=== PATIENT | female | born 1995 | race Caucasian/White ===

== ENCOUNTER 2023-03-01 16:56 | Observation (INO) | payer OTHER, SELFPAY ==
--- NOTE | ~2023-03-01 | XR_ITS ---
EXAMINATION: XR chest 1V portable Exam Date/Time: 03/01/2023 18:15 CDT HISTORY: fever, BODY ACHES, DIABETIC Comparison: None. RESULT: Lines, tubes, and devices: None. Lungs and pleura: Reticular opacities with cuffing. No focal consolidation. Cardiomediastinal silhouette: Stable. Other: No acute osseous or upper abdominal finding. IMPRESSION: Pulmonary opacities may represent interstitial edema versus respiratory bronchiolitis. Reviewed, dictated and finalized at location K. IMPRESSION: Pulmonary opacities may represent interstitial edema versus respiratory bronchi olitis.
[2023-03-01 17:10] LABS: Glucose Point of Care 168 mg/dl (65-105)
[2023-03-01 17:16] VITALS: BP 137/70; PULSE 129; RESP 18; TEMP 39.5; O2SAT 98
--- NOTE | 2023-03-01 17:28 | ECG_ITS ---
Measurements Intervals Oscar Rate: 110 P: 39 TX: 144 QRS: 67 QRSD: 93 T: 46 QT: 309 QTc: 418 Interpretive Statements SINUS TACHYCARDIA BORDERLINE ST-T WAVE ABNORMALITY- ANTEROLATERAL LEADS ABNORMAL ECG NO PREVIOUS ECG AVAILABLE FOR COMPARISON Electronically Signed On 03-02-2023 7:51:57 CDT by Mitul Garcia D.O.
--- NOTE | 2023-03-01 17:34 | ED.FEVER ---
HPI - Fever General Chief Complaint: Fever Stated Complaint: fever, chills, diabetic Time Seen by Provider: 03/01/23 17:22 History of Present Illness HPI Narrative: This is a 28-year-old female with history of type 1 diabetes, who presents to the emergency department complaining of fevers and palpitations for the past day. She states yesterday, she noted some irritation on the right flank where her insulin pump was located. She also noticed blood sugars obtained by her monitor in the 400s. Today, she developed swelling and redness at the previous insulin pump site. This was accompanied by fatigue, palpitations, nausea and multiple episodes of non-bloody vomiting. Related Data Home Medications Medication Instructions Recorded Confirmed blood-glucose sensor (Dexcom G6 03/01/23 03/01/23 Sensor device) blood-glucose transmitter (Dexcom 03/01/23 03/01/23 G6 Transmitter device) insulin lispro 100 unit/mL See Protocol subcut QID 03/01/23 03/01/23 subcutaneous pen (Humalog KwikPen (U-100) Insulin) insulin pump cart,automated,BT 03/01/23 03/01/23 (Omnipod 5 G6 Pods (Gen 5) subcutaneous cartridge) insulin pump cart,cont inf,BT 03/01/23 03/01/23 (Omnipod Dash Pods (Gen 4) subcutaneous cartridge) insulin pump cart,cont inf,RF 03/01/23 03/01/23 (Omnipod Classic Pods (Gen 3) subcutaneous cartridge) insulin pump cartridge,automated 03/01/23 03/01/23 dose,BT with controller subcutaneous (Omnipod 5 G6 Intro Kit (Gen 5) subcutaneous cartridge with controller) pen needle, diabetic 29 gauge x 03/01/23 03/01/23 1/2 (BD Ultra-Fine Original Pen Needle) Allergies Allergy/AdvReac Type Severity Reaction Status Date / Time No Known Allergies Allergy Unknown Verified 11/24/18 19:15 Review of Systems Review of Systems: CONSTITUTIONAL: Fever, chills, and sweats. CARDIOVASCULAR: Palpitations, Denies chest pain, or edema. RESPIRATORY: Denies cough or dyspnea. GASTROINTESTINAL: Nausea and vomiting, Denies abdominal pain, or diarrhea. GENITOURINARY: LMP 1 week ago Denies dysuria or hematuria. SKIN: Erythema and swelling of the right hip Denies other rash or itching. MUSCULOSKELETAL: Myalgias Denies back pain, joint pain NEUROLOGIC: Generalized weakness Denies headache, numbness, dizziness PSYCHIATRIC: Denies anxiety or depression. Exam Narrative: GENERAL: Well-developed, well-nourished, appears uncomfortable. HEAD: Normocephalic, atraumatic. EYES: PERRLA and EOMI. ENT: Nares clear, no rhinorrhea or epistaxis. Mucous membranes moist. Oropharynx without tonsillar hypertrophy exudate or other lesions. CHEST: Clear to auscultation. No respiratory distress. No wheezes rales or rhonchi HEART: Tachycardic with regular rhythm. No murmur heard. Normal peripheral pulses. ABDOMEN: Soft, nontender, nondistended, normal active bowel sounds. EXTREMITIES: Normal range of motion. No edema. SKIN: An approximate 25p30rt area of erythema, swelling and induration with sharply demarcated border is noted over the right hip consistent with cellulitis. There is no noted fluctuant mass, bleeding or purulent drainage. The skin is otherwise warm, dry, without rash. NEURO: No focal deficits. Alert and oriented x3. PSYCH: Normal mood and affect. Course DINING ROOM MANAGER/PA Physician Supervision 17:35 - I have a strong suspicion for sepsis and possible DKA. Will order sepsis protocol and treat for diabetic cellulitis with cefepime, flagyl and vancomycin. 17:50 - VBG demonstrates mild alkalosis with pH of 7.43. Bicarb of 20.7 and PCO2 of 31.9. 18:38 - White blood cell count elevated to 17. Chemistries pending. 18:45 - On reevaluation, the patient's tachycardia and fever have resolved. Her BP remains in the 130s. Given the patient's cellulitis, initial presentation concerning for sepsis, and diabetes, I discussed patient with hospitalist LALITO Espana for admission, who accepts. I discussed the findings with the patient who vo
[2023-03-01] MEDS: ONDANSETRON INJ 4 MG/2 ML VIAL IV PUSH (17:45)
[2023-03-01 17:46] LABS: Basophils Absolute Auto 0.1 K/mm3 (0.0-0.1); Basophils Percent Auto 0.3 % (0.2-1.2); Hematocrit 38.6 % (37.0-47.0); Immature Granulocyte Absolute 0.08 K/mm3 (0.00-0.031); Immature Granulocyte Percent A 0.5 % (0-0.5); Lymphocytes Absolute Auto 1.28 K/mm3 (0.9-3.2); Lymphocytes Percent Auto 7.4 % (18.3-44.2); Mean Corpuscular HGB Conc 33.7 g/dl (32-36); Mean Corpuscular Hemoglobin 31.5 pg (26-34); Mean Corpuscular Volume 93.5 fl (80-100); Mean Platelet Volume 11.2 fl (7.4-10.4); Monocytes Absolute Auto 0.6 K/mm3 (0.1-0.6); Monocytes Percent Auto 3.5 % (2.6-8.5); Neutrophils Absolute Auto 15.3 K/mm3 (1.3-6.7); Neutrophils Percent Auto 88.3 % (45.5-73.1); Platelet Count Result 169 k/mm3 (150-375); Red Blood Count 4.13 M/mm3 (4.2-5.4); Red Cell Distribution Width 12.1 % (11.5-14.5); White Blood Count 17.3 K/mm3 (4.5-10.0)
[2023-03-01 17:55] LABS: Fractional Inspired Oxygen 21 %; HCO3 VBG 20.7 mEq/l (24.0-30.0); PCO2 VBG 31.9 mmHg (42.0-48.0); PO2 VBG 32.9 mmHg (35.0-45.0)
[2023-03-01 18:01] LABS: Lactic Acid Reflex 1.1 mmol/L (0.7-2.0)
[2023-03-01] MEDS: metroNIDAZOLE 500 MG/ISO 100ML 500 MG/100 ML BAG 100 MG IVPB (18:04)
[2023-03-01] MEDS: CEFEPIME 2 GM/NS 50 ML 2 GM/50 ML BAG IVPB (18:04)
[2023-03-01 18:18] VITALS: TEMP 37.6
[2023-03-01 18:24] LABS: INR 1.2; Prothrombin Time 15.9 Seconds (11.1-14.7)
[2023-03-01 18:25] LABS: Partial Thromboplastin Time 30.5 SECONDS (22.3-36.8)
[2023-03-01 19:00] LABS: Glucose Point of Care 126 mg/dl (65-105)
[2023-03-01 19:06] LABS: Alanine Aminotransferase 16 U/L (6-35); Albumin Level 3.7 g/dL (3.5-5.1); Alkaline Phosphatase 42 U/L (38-126); Anion Gap 8 mmol/L (8-16); Aspartate Amino Transferase 16 U/L (14-36); Bilirubin,Total 0.6 mg/dL (0.2-1.3); Blood Urea Nitrogen 14 mg/dL (7-17); Calcium 8.5 mg/dL (8.4-10.2); Carbon Dioxide 22 mmol/L (22-30); Chloride 102 mmol/L (98-107); Estimated CRCL calculation 118 ml/min; Estimated Glomerular Filt Rate > 60; Glucose 136 mg/dL (65-110); Potassium 3.3 mmol/L (3.4-5.0); Sodium 132 mmol/L (137-145)
--- NOTE | 2023-03-01 19:17 | PC.NURSE ---
Per EDGAR Perez, patient okay to use own insulin pump.
[2023-03-01 19:39] LABS: CRP 18.6 mg/dL (<1.0)
[2023-03-01 19:43] VITALS: BP 142/86; PULSE 99; RESP 22; O2SAT 98
[2023-03-01 19:53] LABS: Appearance Urine Cloudy (Clear); Bacteria Urine 4+ /hpf; Bilirubin Urine Negative (Negative); Blood Urine Negative (Negative); Color Urine Dark Yellow (Yellow); Glucose Urine UA 2+ mg/dL (Negative); Ketones Urine 4+ mg/dL (Negative); Leukocyte Esterase Ur 1+ LEU/UL (Negative); Mucus Urine Present /lpf; Nitrate Urine Negative (Negative); Protein Urine 2+ mg/dL (Negative); RBC Urine 0-2 /hpf (0-2); Specific Grav Ur 1.035 (1.001-1.035); Squamous Epithelial Cell Urine Many /hpf (Few); Urobilinogen Urine 0.2 mg/dL (<2.0); pH Urine 6.5 (5.0-9.0)
[2023-03-01 19:59] LABS: Add Urine Microscopic? YES
[2023-03-01] MEDS: SODIUM CHLORIDE 0.9% IV 1,000 ML 125 ML IV CONT (20:59)
[2023-03-01 21:01] VITALS: PULSE 97; RESP 16; O2SAT 100
--- NOTE | 2023-03-01 21:01 | PC.NURSE ---
This patient, Kaleigh Chavez, was admitted to [facility] Surg Room 321-01. Patient/family oriented to hospital policies and general routines including ID bracelet, bed and alarms, visiting hours, pain management, procedures, bathroom and other care routines, personal items, smoking policy, room service/diet, and visiting hours. Information on how to activate the Rapid Response Team has been discussed. Patient/Family are encouraged to report perceived risks to care and to ask questions if they do not understand what they are told or what they should do.
[2023-03-01 21:03] VITALS: BP 104/47; PULSE 101; RESP 14; TEMP 37.4; O2SAT 99
[2023-03-01 21:04] VITALS: BMI 30.8
[2023-03-02 04:11] LABS: Glucose Point of Care 211 mg/dl (65-105)
[2023-03-02 04:32] VITALS: BP 114/52; PULSE 97; RESP 16; TEMP 36.6; O2SAT 100
--- NOTE | 2023-03-02 06:15 | PC.NURSE ---
basal rates 12a-6a 1.55, 6a-10pm 1.25, 10pm-12am 1.7 for insulin pump
[2023-03-02] MEDS: SODIUM CHLORIDE 0.9% IV 1,000 ML 125 ML IV CONT ×2 (06:17→22:21)
[2023-03-02 07:02] LABS: Basophils Percent Auto 0.2 % (0.2-1.2); Eosinophils Percent Auto 0.1 % (0-4.4); Hematocrit 34.4 % (37.0-47.0); Hemoglobin 11.4 g/dL (12.0-15.0); Immature Granulocyte Absolute 0.07 K/mm3 (0.00-0.031); Immature Granulocyte Percent A 0.6 % (0-0.5); Immature Platelet Fraction Pct 6.9 % (0.9-11.2); Lymphocytes Absolute Auto 1.23 K/mm3 (0.9-3.2); Lymphocytes Percent Auto 10.5 % (18.3-44.2); Mean Corpuscular HGB Conc 33.1 g/dl (32-36); Mean Corpuscular Hemoglobin 30.9 pg (26-34); Mean Corpuscular Volume 93.2 fl (80-100); Mean Platelet Volume 11.4 fl (7.4-10.4); Monocytes Absolute Auto 0.4 K/mm3 (0.1-0.6); Monocytes Percent Auto 3.3 % (2.6-8.5); Neutrophils Percent Auto 85.3 % (45.5-73.1); Platelet Count Result 130 k/mm3 (150-375); Red Blood Count 3.69 M/mm3 (4.2-5.4); Red Cell Distribution Width 11.9 % (11.5-14.5); White Blood Count 11.8 K/mm3 (4.5-10.0)
[2023-03-02 07:16] LABS: Anion Gap 4 mmol/L (8-16); Blood Urea Nitrogen 10 mg/dL (7-17); Calcium 8.3 mg/dL (8.4-10.2); Carbon Dioxide 25 mmol/L (22-30); Chloride 106 mmol/L (98-107); Estimated CRCL calculation 138 ml/min; Estimated Glomerular Filt Rate > 60; Glucose 131 mg/dL (65-110); Potassium 3.4 mmol/L (3.4-5.0); Sodium 135 mmol/L (137-145)
[2023-03-02 08:05] LABS: Glucose Point of Care 121 mg/dl (65-105)
[2023-03-02] MEDS: ceFAZolin 2 GM/D5W 50 ML 2 GM/50 ML BAG IVPB ×3 (09:28→23:36)
--- NOTE | 2023-03-02 11:02 | PM.IMPN ---
Progress Note: A&P Assessment and Plan (1) Sepsis: Qualifiers: Sepsis acute organ dysfunction status: without acute organ dysfunction Sepsis type: sepsis due to unspecified organism Qualified Code(s): A41.9 - Sepsis, unspecified organism Code(s): A41.9 - Sepsis, unspecified organism Status: Acute Assessment and Plan: Septic on presentation with fever (T-max 103.2?), tachycardia, and leukocytosis Source of infection is cellulitis as below Fever has improved, patient remaining afebrile today Continue IV antibiotics Leukocytosis improving (2) Cellulitis of trunk: Code(s): L03.319 - Cellulitis of trunk, unspecified Status: Acute Assessment and Plan: Patient has cellulitis overlying the right hip/flank at site of insulin pump Insulin pump site has been changed Continue with Ancef and vancomycin Blood cultures pending MRSA nares culture pending Trend CRP Monitor with serial exams Supportive care to include analgesics as needed, antiemetics, and antipyretics (3) Type 1 diabetes: Code(s): E10.9 - Type 1 diabetes mellitus without complications Status: Acute Assessment and Plan: Patient reports last A1c was 7.1. Patient reports poor blood sugar control prior to presentation but seems improved at this time Last blood sugar 125 Continue with patient managed insulin pump Monitor glucose trends and adjust regimen as needed Check updated A1c Subjective Date/time seen: 03/02/23 11:02 Interval history: Date of service: 03/02/23 Aisha Chaevz is a 28 year old female with a history of type 1 diabetes mellitus who is seen in follow-up for cellulitis of the right flank. She endorses sharp pain in the right flank that is worse with movement which she rates as 7/10. She endorses nausea but no episodes of emesis. She denies fevers, chills, or sweats. She has moved her insulin pump and has no issues at the current insulin pump site. She denies urinary symptoms. Reports last bowel movement was 2 days ago. Denies shortness of breath, cough, or chest pain. Review of Systems Review of Systems: All systems reviewed & are unremarkable except as noted in HPI and below Exam Narrative: General: Well-nourished, well-appearing 28-year-old female, sitting up in bed, comfortable, NARD Neuro: awake, alert and oriented x4, speech clear, no focal neuro deficits noted HEENMT: normocephalic, atraumatic, EOMI, sclerae anicteric, moist oral mucosa Respiratory: clear to auscultation bilaterally, nonlabored breathing Cardio: regular rate, regular rhythm with S1-S2 Abdomen: nondistended, normoactive bowel sounds, soft Extremities: no edema, erythema, or tenderness to palpation, DP pulses 2+ bilaterally Skin: round patch of erythema on right flank/hip that is warm and tender to palpation, no rashes or lesions, warm and dry Psych: appropriate mood and affect, judgment and insight intact Objective Data Vital Signs Vital Signs: Vital Signs - 24 hr 03/01/23 17:16 03/01/23 18:18 03/01/23 19:43 Temperature 103.1 F H 99.7 F H Pulse Rate 129 H 99 Respiratory Rate 18 22 H Blood Pressure 137/70 142/86 H Pulse Oximetry 98 98 Oxygen Delivery Room Air 03/01/23 21:03 03/02/23 04:32 03/01/23 21:01 Temperature 99.4 F 97.9 F Pulse Rate 101 H 97 97 Respiratory Rate 14 16 16 Blood Pressure 104/47 L 114/52 L Pulse Oximetry 99 100 100 Oxygen Delivery Room Air Intake/Output Intake/Output: Intake & Output 02/27/23 02/28/23 03/01/23 03/02/23 23:59 23:59 23:59 23:59 Intake Total 3350 1300 Balance 3350 1300 Meds/Results Medications: Active Medications Generic Name Dose Route Start Last Admin Trade Name Freq PRN Reason Stop Dose Admin Acetaminophen 1,000 mg 03/02/23 06:17 Acetaminophen 500 Mg Tablet PO Q6H PRN Mild Pain (1-3) or Fever Dextrose 12.5 gm 03/01/23 18:37 Dextrose 50% 25 Gm/50 Ml Syringe
[2023-03-02] MEDS: ACETAMINOPHEN 325 MG TABLET 650 MG PO ×2 (11:07→21:51)
[2023-03-02 11:52] LABS: Glucose Point of Care 125 mg/dl (65-105)
[2023-03-02 13:19] VITALS: BP 107/46; PULSE 88; RESP 18; TEMP 36.9; O2SAT 99
--- NOTE | 2023-03-02 13:46 | PCCCNOTE ---
On 03/02/23, the student, [Vale Alonzo], provided care and completed [facility] documentation on this patient. I have reviewed the student's documentation and agree with the findings.
[2023-03-02 14:05] LABS: Hemoglobin A1C 6.4 % (<5.7)
--- NOTE | 2023-03-02 15:43 | PM.IMHP ---
H&P: HPI History of Present Illness Date/Time: 03/01/23 20:00 Chief Complaint: Fever. Narrative: This is a pleasant 28-year-old female with type 1 diabetes mellitus who presented to the emergency department for evaluation of fever. Yesterday she had some discomfort on the right flank where she had her insulin pump so she moved the site and later that day she noticed that the site was red and irritated. Last evening she started to develop chills and a fever which was 103.5? F on arrival to the ED. She has also had nausea and vomiting and she reports having difficulties getting her glucose under 400 yesterday but that has since improved. In the ED she was found to have a large area of cellulitis on the right flank and she is being admitted in this setting for IV antibiotics and close monitoring.?She has no known history of multidrug resistant organisms. Review of Systems Review of Systems: Twelve systems were reviewed and are negative except for as per HPI. [facility] Past Medical History Medical History (Updated 03/03/23 @ 01:08 by Ana Madden PA-C) Type 1 diabetes Surgical History Surgical History (Updated 03/03/23 @ 01:08 by Ana Madden PA-C) History of excision of pilonidal cyst Family History Family History (Updated 03/03/23 @ 01:09 by Ana Madden PA-C) Other Family history non-contributory Social History Social History (Updated 03/03/23 @ 01:09 by Ana Madden PA-C) Social History: Surrogate medical decision maker: Larry Chavez, father. Code status: Full code. Smoking status: Never smoker Alcohol intake: current Drinks per week: 2 Substance use: never Lack of Transportation: No Lack of Food: Never True Current Housing: Decline to Answer Concerned About Future Housing: No Difficulty Paying Gas/Electric Bills: No Difficulty Paying for Meds: No Currently Unemployed: No Education: Bachelor's Degree Difficulty w/ Childcare or Family Care: No Spiritual care concerns: No Meds Home Medications and Allergies Home Medications Medication Instructions Recorded Confirmed Type blood-glucose sensor (Dexcom G6 03/01/23 03/01/23 History Sensor device) blood-glucose transmitter (Dexcom 03/01/23 03/01/23 History G6 Transmitter device) insulin lispro 100 unit/mL See Protocol subcut QID 03/01/23 03/01/23 History subcutaneous pen (Humalog KwikPen (U-100) Insulin) insulin pump cart,automated,BT 03/01/23 03/01/23 History (Omnipod 5 G6 Pods (Gen 5) subcutaneous cartridge) insulin pump cart,cont inf,BT 03/01/23 03/01/23 History (Omnipod Dash Pods (Gen 4) subcutaneous cartridge) insulin pump cart,cont inf,RF 03/01/23 03/01/23 History (Omnipod Classic Pods (Gen 3) subcutaneous cartridge) insulin pump cartridge,automated 03/01/23 03/01/23 History dose,BT with controller subcutaneous (Omnipod 5 G6 Intro Kit (Gen 5) subcutaneous cartridge with controller) pen needle, diabetic 29 gauge x 03/01/23 03/01/23 History 1/2 (BD Ultra-Fine Original Pen Needle) Allergies Allergy/AdvReac Type Severity Reaction Status Date / Time No Known Allergies Allergy Unknown Verified 11/24/18 19:15 Vital Signs Vital Signs - 24 hr 03/01/23 17:16 03/01/23 18:18 03/01/23 19:43 Temperature 103.1 F H 99.7 F H Pulse Rate 129 H 99 Respiratory Rate 18 22 H Blood Pressure 137/70 142/86 H Pulse Oximetry 98 98 Oxygen Delivery Room Air 03/01/23 21:03 03/02/23 04:32 03/01/23 21:01 Temperature 99.4 F 97.9 F Pulse Rate 101 H 97 97 Respiratory Rate 14 16 16 Blood Pressure 104/47 L 114/52 L Pulse Oximetry 99 100 100 Oxygen Delivery Room Air 03/02/23 08:00 03/02/23 13:19 Temperature 98.4 F Pulse Rate 88 Respiratory Rate 18 Blood Pressure 107/46 L Pulse Oximetry 99 Oxygen Delivery Room Air Exam Narrative: General: Nontoxic-appearing female sitting up in bed.?
[2023-03-02 16:54] LABS: Glucose Point of Care 153 mg/dl (65-105)
[2023-03-02 20:00] VITALS: O2SAT 99
[2023-03-02 20:35] VITALS: BP 116/67; PULSE 100; RESP 18; TEMP 36.9; O2SAT 100
[2023-03-02 20:51] LABS: Glucose Point of Care 124 mg/dl (65-105)
[2023-03-03] MEDS: ceFAZolin 2 GM/D5W 50 ML 2 GM/50 ML BAG IVPB ×3 (05:19→22:43)
[2023-03-03 05:28] VITALS: BP 114/62; PULSE 77; RESP 14; TEMP 36; O2SAT 100
[2023-03-03 07:46] LABS: Hematocrit 30.5 % (37.0-47.0); Hemoglobin 10.3 g/dL (12.0-15.0); Immature Platelet Fraction Pct 8.8 % (0.9-11.2); Mean Corpuscular HGB Conc 33.8 g/dl (32-36); Mean Corpuscular Hemoglobin 31.9 pg (26-34); Mean Corpuscular Volume 94.4 fl (80-100); Mean Platelet Volume 11.3 fl (7.4-10.4); Platelet Count Result 115 k/mm3 (150-375); Red Blood Count 3.23 M/mm3 (4.2-5.4); Red Cell Distribution Width 12.2 % (11.5-14.5); White Blood Count 6.7 K/mm3 (4.5-10.0)
[2023-03-03 07:58] LABS: Anion Gap 5 mmol/L (8-16); Blood Urea Nitrogen 6 mg/dL (7-17); Calcium 7.6 mg/dL (8.4-10.2); Carbon Dioxide 24 mmol/L (22-30); Chloride 108 mmol/L (98-107); Estimated CRCL calculation 163 ml/min; Estimated Glomerular Filt Rate > 60; Glucose 147 mg/dL (65-110); Potassium 3.3 mmol/L (3.4-5.0); Sodium 137 mmol/L (137-145)
[2023-03-03 08:05] LABS: CRP 17.8 mg/dL (<1.0)
[2023-03-03 08:08] LABS: Glucose Point of Care 149 mg/dl (65-105)
[2023-03-03] MEDS: SODIUM CHLORIDE 0.9% IV 1,000 ML 125 ML IV CONT (08:08)
[2023-03-03 08:15] LABS: Vancomycin Trough 6.1 ug/mL (10.0-20.0)
[2023-03-03] MEDS: VANCOMYCIN HCL 2,000 MG in SODIUM CHLORIDE 0.9% IV 500 ML 250 MG IVPB ×2 (11:37→17:58)
[2023-03-03] MEDS: POTASSIUM CHLORIDE 20 MEQ TABLET PO (11:37)
[2023-03-03 11:46] LABS: Glucose Point of Care 152 mg/dl (65-105)
--- NOTE | 2023-03-03 13:07 | PM.IMPN ---
Progress Note: A&P Assessment and Plan (1) Sepsis: Qualifiers: Sepsis acute organ dysfunction status: without acute organ dysfunction Sepsis type: sepsis due to unspecified organism Qualified Code(s): A41.9 - Sepsis, unspecified organism Code(s): A41.9 - Sepsis, unspecified organism Status: Acute Assessment and Plan: Septic on presentation with fever (T-max 103.2?), tachycardia, and leukocytosis Source of infection is cellulitis as below Fever resolved, pt afebrile 24 hours Continue IV antibiotics Leukocytosis resolved Blood cultures pending, negative to date (2) Cellulitis of trunk: Code(s): L03.319 - Cellulitis of trunk, unspecified Status: Acute Assessment and Plan: Patient has cellulitis overlying the right hip/flank at site of prior insulin pump insertion Insulin pump site has been changed Continue with IV Ancef and vancomycin Blood cultures pending, negative to date MRSA nares culture pending Trend CRP Monitor with serial exams Supportive care to include analgesics as needed, antiemetics, and antipyretics (3) Type 1 diabetes: Qualifiers: Diabetes mellitus complication detail: with other skin complication Diabetes mellitus complication status: with skin complications Qualified Code(s): E10.628 - Type 1 diabetes mellitus with other skin complications Code(s): E10.9 - Type 1 diabetes mellitus without complications Status: Acute Assessment and Plan: A1c is 6.4. Blood sugars are controlled Continue with patient managed insulin pump Monitor glucose trends and adjust regimen as needed Plan Consider discharge home tomorrow based on culture results if improvement in appearance of cellulitis Subjective Date/time seen: 03/03/23 13:07 Interval history: Date of service: 03/02/23 Aisha Chavez is a 28 year old female with a history of type 1 diabetes mellitus who is seen in follow-up for cellulitis of the right flank. Patient states that she is feeling better today. She has not noted much improvement in her cellulitis. States area his about the same size. Feels that the tenderness has improved. Denies fevers or chills. No nausea or vomiting. She continues to endorse poor appetite. She had trouble sleeping last night. She is eager for discharge home. Discussed with patient and her family member that would not advise discharge today given persistent cellulitis. Discussed need for continued IV antibiotics to ensure appropriate treatment. Review of Systems Review of Systems: All systems reviewed & are unremarkable except as noted in HPI and below Exam Narrative: General:? Well-nourished, well-appearing 28-year-old female, sitting up in bed, comfortable, NARD Neuro: awake, alert and oriented x4, speech clear, no focal neuro deficits noted HEENMT:? normocephalic, atraumatic, EOMI, sclerae anicteric Respiratory: clear to auscultation bilaterally, nonlabored breathing Cardio: regular rate, regular rhythm with S1-S2 Abdomen:? nondistended, normoactive bowel sounds, soft Extremities: no edema, erythema, or tenderness to palpation, DP pulses 2+ bilaterally Skin: Large patch of erythema on right flank/hip? that is warm and tender to palpation, erythema is mildly improved today, no rashes or lesions, warm and dry Psych: appropriate mood and affect, judgment and insight intact Objective Data Vital Signs Vital Signs: Vital Signs - 24 hr 03/02/23 13:19 03/02/23 20:00 03/02/23 20:35 Temperature 98.4 F 98.5 F Pulse Rate 88 100 Respiratory Rate 18 18 Blood Pressure 107/46 L 116/67 Pulse Oximetry 99 99 100 Oxygen Delivery Room Air 03/03/23 05:28 03/03/23 08:20 Temperature 96.8 F L Pulse Rate 77 Respiratory Rate 14 Blood Pressure 114/62 Pulse Oximetry 100 Oxygen Delivery Room Air Intake/Output Intake/Output: Intake & Output 02/28/23 03/01/23 03/02/23 03/03/23 23:59 23:59 23:59 2
[2023-03-03 14:36] VITALS: BP 120/86; PULSE 82; RESP 18; TEMP 36.3; O2SAT 100
[2023-03-03 17:14] LABS: Glucose Point of Care 158 mg/dl (65-105)
[2023-03-03 20:52] VITALS: BP 118/75; PULSE 89; RESP 16; TEMP 36.4; O2SAT 100
[2023-03-03] MEDS: MELATONIN 5 MG TABLET PO (22:39)
[2023-03-03] MEDS: ACETAMINOPHEN 325 MG TABLET 650 MG PO (22:40)
[2023-03-03 23:37] LABS: Glucose Point of Care 117 mg/dl (65-105)
[2023-03-04] MEDS: VANCOMYCIN HCL 2,000 MG in SODIUM CHLORIDE 0.9% IV 500 ML 250 MG IVPB (03:15)
[2023-03-04 05:00] VITALS: BP 119/78; PULSE 80; RESP 20; TEMP 35.9; O2SAT 100
[2023-03-04 07:53] LABS: Glucose Point of Care 136 mg/dl (65-105)
[2023-03-04 08:50] LABS: Hemoglobin 10.8 g/dL (12.0-15.0); Mean Corpuscular HGB Conc 33.8 g/dl (32-36); Mean Corpuscular Hemoglobin 31.2 pg (26-34); Mean Corpuscular Volume 92.5 fl (80-100); Mean Platelet Volume 11.5 fl (7.4-10.4); Platelet Count Result 147 k/mm3 (150-375); Red Blood Count 3.46 M/mm3 (4.2-5.4); Red Cell Distribution Width 12.5 % (11.5-14.5); White Blood Count 4.6 K/mm3 (4.5-10.0)
[2023-03-04] MEDS: ceFAZolin 2 GM/D5W 50 ML 2 GM/50 ML BAG IVPB (08:55)
[2023-03-04 09:06] LABS: Anion Gap 6 mmol/L (8-16); Blood Urea Nitrogen 5 mg/dL (7-17); CRP 7.7 mg/dL (<1.0); Calcium 8.2 mg/dL (8.4-10.2); Carbon Dioxide 24 mmol/L (22-30); Chloride 107 mmol/L (98-107); Estimated CRCL calculation 198 ml/min; Estimated Glomerular Filt Rate > 60; Glucose 160 mg/dL (65-110); Potassium 3.4 mmol/L (3.4-5.0); Sodium 137 mmol/L (137-145)
[2023-03-04 09:20] LABS: Vancomycin Trough 15.1 ug/mL (10.0-20.0)
--- NOTE | 2023-03-04 09:52 | PM.DS ---
DS: Admitting Diagnosis Discharge Date 03/04/23 0945 Admitting Diagnosis Truck cellulitis DS: Discharge Diagnosis Discharge Diagnosis (1) Sepsis: Qualifiers: Sepsis acute organ dysfunction status: without acute organ dysfunction Sepsis type: sepsis due to unspecified organism Qualified Code(s): A41.9 - Sepsis, unspecified organism Code(s): A41.9 - Sepsis, unspecified organism Status: Acute Assessment and Plan: Septic on presentation with fever (T-max 103.2?), tachycardia, and leukocytosis Source of infection is cellulitis as below Fever resolved, pt afebrile 24 hours Continue IV antibiotics Leukocytosis resolved Blood cultures pending, negative to date Will change to PO Bacterium (2) Cellulitis of trunk: Code(s): L03.319 - Cellulitis of trunk, unspecified Status: Acute Assessment and Plan: Patient has cellulitis overlying the right hip/flank at site of prior insulin pump insertion Insulin pump site has been changed Continue with IV Ancef and vancomycin Blood cultures pending, negative to date MRSA nares culture pending Trend CRP Monitor with serial exams Supportive care to include analgesics as needed, antiemetics, and antipyretics (3) Type 1 diabetes: Qualifiers: Diabetes mellitus complication detail: with other skin complication Diabetes mellitus complication status: with skin complications Qualified Code(s): E10.628 - Type 1 diabetes mellitus with other skin complications Code(s): E10.9 - Type 1 diabetes mellitus without complications Status: Acute Assessment and Plan: A1c is 6.4. Blood sugars are controlled Continue with patient managed insulin pump Monitor glucose trends and adjust regimen as needed DS: Summary Hospital Course Hospital Course: Patient is a 28 year old female with a past medical history of Type 1 diabetes who presented to the ED for evaluation of fever. It appears that she was noted to have cellulitis where she used to have her insulin pump. Since admission, she has receiving IV vancomycin Ancef for current treatment. It was noted that the skin area was red, hot, swollen. She did have a fever upon arrival however has resolved. Blood cultures are negative to date and MRSA swab is still pending. Glucose has been on trend has been stable since admission. Currently patient is demanding to go home and since the wound does not look as big and the warmth is down along with the swelling will send her home on antibiotics. Spoke to the patient about worsening signs and symptoms explained to her that if she notices any worsening times a symptoms including warmth, swelling, redness or the wound gets Bigger she needs to come back. Also will follow the cultures from here. Explained her that to drug options of doxycycline along with Bactrim. Spoke to ID pharmacist who stated that Bactrim would probably be a better option at this time. Spoke to the patient about side effects of Bactrim including renal failure. Also instructed her to make sure she takes a full glass of water when she takes these medications. Currently patient denies any chest pain, shortness a breath, nausea, vomiting, diarrhea or constipation. Did compare the current area along with the pictures from the course of treatment. Area does look to be smaller and reduced in size. Warmth is not present along with swelling. Status at Discharge Functional status at discharge: independent ambulation Time Spent with Patient Time attestation: Total time spent providing and/or coordinating discharge services: 40 minutes Time spent: Greater than 30 minutes Specific discharge activities: Diagnostic testing, chart review, developing a treatment plan, education, care coordination documentation, physical exam, result review Exam Narrative: General:? Well-nourished, well-appearing 28-year-old female, sitting up in bed, comfortable, NARD Neuro: awake, aler
[2023-03-04] MEDS: SULFAMETHOXAZOLE/TRIMETHOPRIM 800/160 MG DS TABLET 1 TAB PO (10:37)
== END 2023-03-04 11:02 | disposition home or self-care (01) ==
LOC: ANHED 18:12 → ANH3MEDSUR 21:16
PROVIDERS: Family Medicine; Admitting Provider Internal Medicine; Emergency Provider Preventive Medicine Aerospace Medicine; Visit Provider Physician Assistant
DX: A41.9 Sepsis, unspecified organism (principal); L03.319 Cellulitis of trunk, unspecified; E10.628 Type 1 diabetes mellitus with other skin complications; Z96.41 Presence of insulin pump (external) (internal); E10.65 Type 1 diabetes mellitus with hyperglycemia; R50.9 Fever, unspecified; R10.9 Unspecified abdominal pain; R53.83 Other fatigue; R91.8 Other nonspecific abnormal finding of lung field; D72.829 Elevated white blood cell count, unspecified; R94.31 Abnormal electrocardiogram [ECG] [EKG]; R00.0 Tachycardia, unspecified; R11.2 Nausea with vomiting, unspecified; R00.2 Palpitations; M79.10 Myalgia, unspecified site; F10.90 Alcohol use, unspecified, uncomplicated; R53.1 Weakness; Z79.4 Long term (current) use of insulin
CPT/HCPCS: 36415; 71045; 80048; 80053; 80202; 81001; 81025; 82803; 82948; 83036; 83605; 85025; 85027; 85055; 85610; 85730; 86140; 87040; 87081; 87086; 93005; 96361; 96365; 96366; 96367; 96375; 99285; A9270; G0378; J0131; J0690; J0692; J2405; J3370; J7030; J7040; J7120

== ENCOUNTER 2025-08-16 09:18 | Outpatient (CLI) | payer BC, SELFPAY ==
--- NOTE | ~2025-08-16 | XR_ITS ---
EXAMINATION: XR chest 2V, 08/16/2025 9:23 CDT HISTORY: Cough, unspecified, cough x 1 month, congestion COMPARISON: No comparisons available. Technique: 2 views obtained. Findings: The lungs are clear, no effusion. No pneumothorax. Heart is normal size. Mediastinal and hilar contours are within normal limits. Bony thorax no acute abnormality. Impression: No acute cardiopulmonary abnormality. Reviewed, dictated and finalized at location P. Impression: No acute cardiopulmonary abnormality.
== END 2025-08-16 09:19 | disposition home or self-care (01) ==
LOC: GOSHIMG 09:18
PROVIDERS: PCP Clinical Nurse Specialist; Visit Provider Clinical Nurse Specialist
DX: R05.9 Cough, unspecified (principal); R09.89 Other specified symptoms and signs involving the circulatory and respiratory systems
CPT/HCPCS: 71046